=== PATIENT | female | born 1985 | race Caucasian/White ===

== ENCOUNTER 2020-12-04 06:33 | Inpatient (IN) ==
[2020-12-04] MEDS ORDERED: D5 1/2 NS 1000 ML 1,000 ML IV ONE (06:44)
[2020-12-04] MEDS ORDERED: ANCEF 1 GRAM IV PREMIX* 1 G/50 ML BAG IV ONE ×2 (06:44→07:00)
[2020-12-04] MEDS ORDERED: ANCEF VIAL 1 GRAM IVP ONE (06:49)
[2020-12-04] MEDS ORDERED: D5 1/2 NS 1000 ML 1,000 ML IV SCH (06:49)
[2020-12-04] MEDS ORDERED: ProvayBLUE 0.5% ONE (06:52)
[2020-12-04] MEDS ORDERED: BETADINE SOLN ONE (06:52)
[2020-12-04] MEDS ORDERED: BRIDION ONE (07:06)
[2020-12-04] MEDS ORDERED: ZEMURON 50 MG VIAL ONE (07:07)
[2020-12-04] MEDS ORDERED: FENTANYL VIAL INJ 100 mcg ONE (07:07)
[2020-12-04] MEDS ORDERED: OFIRMEV IV 1000 MG VIAL 1,000 MG/100 ML VIAL IV ONE (07:07)
[2020-12-04] MEDS ORDERED: XYLOCAINE 1 % (PLAIN) ONE (07:07)
[2020-12-04] MEDS ORDERED: DILAUDID INJ ONE (07:07)
[2020-12-04 07:08] VITALS: BMI 33.4
[2020-12-04] MEDS ORDERED: DIPRIVAN VIAL ONE (07:21)
[2020-12-04] MEDS ORDERED: REGLAN INJ 10 MG VIAL ONE (07:21)
[2020-12-04] MEDS ORDERED: ZOFRAN INJ 4 MG VIAL ONE (07:21)
[2020-12-04] MEDS ORDERED: SUPRANE ONE ×2 (07:21→08:37)
[2020-12-04] MEDS ORDERED: DECADRON INJ ONE (07:21)
[2020-12-04] MEDS ORDERED: VERSED ONE (07:21)
[2020-12-04] MEDS ORDERED: LTA KIT LIDOCAINE 4% ONE (07:21)
[2020-12-04] MEDS ORDERED: XYLOCAINE 2 % (PLAIN) ONE (07:21)
[2020-12-04] MEDS ORDERED: LR 1000 ML IV 1,000 ML IV ONE (07:40)
[2020-12-04] MEDS ORDERED: PHENERGAN INJ 25 MG IM PRN (09:34)
[2020-12-04] MEDS ORDERED: BENADRYL INJ 50 MG VIAL IVP PRN ×3 (09:34→10:43)
[2020-12-04] MEDS ORDERED: REGLAN INJ 10 MG VIAL IVP PRN ×2 (09:34→10:43)
[2020-12-04] MEDS ORDERED: ZOFRAN INJ 4 MG VIAL IVP PRN ×3 (09:34→10:43)
[2020-12-04] MEDS ORDERED: BARHEMSYS INJ IVP PRN (09:34)
[2020-12-04] MEDS ORDERED: PERCOCET TAB 5/325 MG PO PRN (10:43)
[2020-12-04] MEDS ORDERED: NARCAN INJ IVP PRN (10:43)
[2020-12-04] MEDS ORDERED: TORADOL 30 MG VIAL IVP PRN ×2 (10:43)
[2020-12-04] MEDS: D5 1/2 NS 1000 ML 1,000 ML IV SCH ×2 (10:51→17:47)
[2020-12-04] MEDS ORDERED: NS IRRIGATION* 1,000 ML ONE (15:14)
[2020-12-04] MEDS ORDERED: NS IRRIGATION* 500 ML IR ONE (15:14)
[2020-12-04] MEDS: MOTRIN TAB 800 MG PO PRN (20:30)
[2020-12-04] MEDS: BACTROBAN TOPICAL OINT TOP SCH (21:12)
[2020-12-04] MEDS: COLACE CAP 100 MG PO SCH (21:12)
[2020-12-04] MEDS: PERCOCET TAB 5/325 MG PO PRN (22:15)
[2020-12-05] MEDS: PERCOCET TAB 5/325 MG PO PRN ×2 (03:10→07:54)
[2020-12-05] MEDS: D5 1/2 NS 1000 ML 1,000 ML IV SCH (05:33)
[2020-12-05] MEDS: BACTROBAN TOPICAL OINT TOP SCH (05:34)
[2020-12-05 06:13] LABS: BLOOD UREA NITROGEN 11 mg/dL (7-18); CALCIUM 8.8 mg/dL (8.5-10.1); CARBON DIOXIDE 26.1 mmol/L (21-32); CHLORIDE 101 mmol/L (98-107); CREATININE 0.91 mg/dL (0.55-1.02); SODIUM 137 mmol/L (136-145); eGFR NON BLACK RACES > 60 (>60)
[2020-12-05 06:21] LABS: BASOPHILS % (AUTO) 0.3 % (0.2-1.0); EOSINOPHILS % (AUTO) 0.1 % (0.9-2.9); HEMATOCRIT 31.6 % (36.0-47.0); HEMOGLOBIN 10.9 g/dL (12.0-16.0); LYMPHOCYTES # (AUTO) 3.8 X10^3/uL (1.3-2.9); LYMPHOCYTES % (AUTO) 26.7 % (21.0-51.0); MEAN CORPUSCULAR HEMOGLOBIN 29.1 pg (27.0-34.0); MEAN CORPUSCULAR HGB CONC 34.4 g/dL (33.0-35.0); MEAN CORPUSCULAR VOLUME 84.5 fL (80.0-100.0); MEAN PLATELET VOLUME 7.8 fL (7.4-11.0); MONOCYTES # (AUTO) 0.9 x10^3/uL (0.3-0.8); MONOCYTES % (AUTO) 6.3 % (0.0-13.0); NEUTROPHILS # (AUTO) 9.4 x10^3/uL (2.2-4.8); NEUTROPHILS % (AUTO) 66.6 % (42.0-75.0); PLATELET COUNT 315 X10^3/uL (150.0-450.0); RED BLOOD COUNT 3.74 X10^6/uL (3.5-5.4); WHITE BLOOD COUNT 14.1 X10^3/uL (3.6-10.0)
[2020-12-05 07:58] VITALS: BP 129/73
[2020-12-05] MEDS ORDERED: ESTRACE PO SCH (09:00)
[2020-12-05] MEDS: MOTRIN TAB 800 MG PO PRN (09:57)
[2020-12-05] MEDS: COLACE CAP 100 MG PO SCH (09:57)
== END 2020-12-05 10:10 | disposition home or self-care (01) | DRG 743 ==
LOC: MED/SURG 06:33
PROVIDERS: ADMIT Specialist; ATTEND Specialist
DX: D25.2 Subserosal leiomyoma of uterus; E28.2 Polycystic ovarian syndrome; N94.4 Primary dysmenorrhea; R10.2 Pelvic and perineal pain; N92.5 Other specified irregular menstruation